=== PATIENT | male | born 1970 | race Caucasian/White ===

== ENCOUNTER 2020-12-11 18:05 | Observation (INO) | payer OTHER ==
[~2020-12-11] VITALS: Ht 172.7 cm; Wt 238.1 kg
[2020-12-11 18:16] VITALS: BP 142/70
[2020-12-11] MEDS ORDERED: LISINOPRIL-HCT1 EAC1 PO (18:19)
[2020-12-11 19:30] LABS: ABSOLUTE BASOPHILS 0.1 thou/uL (0.0-0.2); ABSOLUTE LYMPHOCYTES 2.2 thou/uL (0.8-5.3); ABSOLUTE MONOCYTES 1.3 thou/uL (0.0-1.2); ABSOLUTE NEUTROPHILS 12.9 thou/uL (1.6-8.1); BASOPHILS 0.4 %; EOSINOPHILS 0.2 %; HEMATOCRIT 40.3 % (42.0-52.0); HEMOGLOBIN 13.5 gm/dL (14.0-18.0); LYMPHOCYTES 13.4 %; MCH 29.1 pg (26.0-34.0); MCHC 33.5 g/dL (28.0-37.0); MCV 86.9 fL (80.0-100.0); MONOCYTES 7.6 %; MPV 8.7 fl. (7.2-11.1); NUCLEATED RBCS 0 /100WBC; PLATELET COUNT* 246 thou/uL (150-400); POLYS 78.4 %; RBC 4.64 mil/uL (4.50-6.00); RDW-CV 15.1 % (10.5-14.5); WBC 16.4 thou/uL (4.0-11.0)
[2020-12-11 19:41] LABS: CALCIUM 9.4 mg/dL (8.5-10.1); CREATININE 1.3 mg/dL (0.6-1.3); POTASSIUM 5.7 mmol/L (3.5-5.1)
[2020-12-11 19:46] LABS: ALBUMIN 3.9 g/dL (3.4-5.0); TOTAL BILIRUBIN 0.9 mg/dL (<0.1-1.0); TOTAL PROTEIN 8.1 g/dL (6.4-8.2)
--- NOTE | 2020-12-11 23:01 | NUR ---
MULTIPLE CALLS TO TRY TO GET THIS PATIENT TO ANOTHER HOSPITAL FOR CT SCAN [facility] COULD SCAN HIM BUT THE TRANSFERRING AMBULANCE CREW MUST WAIT WITH TH THE PATIENT TO RETURN. PER [facility] THEY ARE UNABLE TO STAY AND RETURN PATIENT [place] THIS WAS THE ONLY WAY [facility] COU[facility] THE [facility]. TRIED [facility] TRANSFER TEAM - THEY ARE CLOSED TO ALL TRANSFERS UNLESS TCD THEY DID ATTEMPT TO DO THIS PATIENT SCAN HOWEVER DUE TO SIZE - THE MEASUREMENTS SHOW HE WILL NOT BE ABLE TO BE SCANNED AT THEIR FACILITY ([facility]) WHO WAS ABLE TO FIT HIM INTO THE SCHEDULE. ATTEMPTED TO TRANSFER TO [facility], WHO AGAIN WUOLD NOT BE ABLE TO SCAN DUE TO MEASUREMENTS CALLED [facility] FOR BARIATRIC TRANSFER TO [place] AND THEY WERE UNABLE TO DO NON EMERGENT TRANSFERS AT ALL UNTIL POSSIBLY MORNING
--- NOTE | 2020-12-11 23:52 | NUR ---
PER JERRY, PATIENT STANDING CIRCUMFERENCE OF WAIST IS 63 INCHES or 160 CM LYING DOWN HE IS 36 INCHES OR 90 CM SIDE TO SIDE FOR WIDTH IN CT SCANNER
[2020-12-12] VITALS (7 sets, daily range): BP systolic 131–153; BP diastolic 68–88
[2020-12-12 04:29] LABS: URINE BILIRUBIN NEGATIVE (Negative); URINE BLOOD NEGATIVE (Negative); URINE CLARITY CLEAR; URINE COLOR YELLOW; URINE GLUCOSE-RANDOM NEGATIVE (Negative); URINE KETONES NEGATIVE (Negative); URINE LEUKOCYTES-REFLEX NEGATIVE (Negative); URINE NITRITE-REFLEX NEGATIVE (Negative); URINE PROTEIN NEGATIVE (Negative); URINE SPECIFIC GRAVITY 1.025 (1.005-1.030)
[2020-12-12 10:20] LABS: ABSOLUTE EOSINOPHILS 0.1 thou/uL (0.0-0.7); ABSOLUTE NEUTROPHILS 5.5 thou/uL (1.6-8.1); BASOPHILS 0.3 %; HEMATOCRIT 35.1 % (42.0-52.0); HEMOGLOBIN 11.8 gm/dL (14.0-18.0); MCH 29.1 pg (26.0-34.0); MCHC 33.6 g/dL (28.0-37.0); MCV 86.7 fL (80.0-100.0); MONOCYTES 11.2 %; MPV 7.6 fl. (7.2-11.1); NUCLEATED RBCS 0 /100WBC; PLATELET COUNT* 175 thou/uL (150-400); POLYS 64.5 %; RBC 4.05 mil/uL (4.50-6.00); RDW-CV 14.5 % (10.5-14.5); WBC 8.5 thou/uL (4.0-11.0)
[2020-12-12 10:34] LABS: ALBUMIN 3.1 g/dL (3.4-5.0); CALCIUM 8.4 mg/dL (8.5-10.1); CREATININE 1.3 mg/dL (0.6-1.3); POTASSIUM 4.2 mmol/L (3.5-5.1); TOTAL BILIRUBIN 0.7 mg/dL (<0.1-1.0); TOTAL PROTEIN 6.5 g/dL (6.4-8.2)
--- NOTE | 2020-12-12 10:46 | EKG ---
[place] [address] ELECTROCARDIOGRAM REPORT Name: REJIBLAKE Jermaine Room: [address] M.R.#: [id number] Admission: 12/11/20 Attend Phys: Marvin Wrad Discharge: Date of : 72 Date of Service: 12/11/201948 Report #: [id number] THIS REPORT FOR: //name// [facility] ED Test Date: 2020-12-11 Test Time: 19:49:12 Pat Name: BLAKE MENDOZA Department: Room: [facility] Gender: M Validation Analyst: KARLA : 1970 Requested By: Mai Hawley Order Number: [id number] MD: Kael Keene Measurements Intervals [place] Rate: 88 P: 57 CT: 155 QRS: -6 QRSD: 99 T: 72 QT: 360 QTc: 436 Interpretive Statements Sinus rhythm Nonspecific T abnormalities, lateral leads Baseline wander in lead(s) II,III,aVF No previous ECG available for comparison Electronically Signed On 12-12-2020 10:46:09 CDT by Kael Keene [email or web address] <ELECTRONICALLY SIGNED> By: Kael Keene MD, [facility] 12/12/20 1046 48 48 Kael Keene MD, [facility] /EPI
--- NOTE | 2020-12-12 13:29 | NUR ---
The patient arrived to 215. Denies SOB or CP pain. IV fluids infusing.
--- NOTE | 2020-12-12 14:51 | NUR ---
[facility] CONTACTED SEVERAL LOCAL HOSPITALS, FOR POSSIBLE TRANSFER, DUE TO PT.'S WEIGHT BARRIERS ALL HOSPITALS DENIED DUE TO PT. EXCEED WEIGHT LIMITS, FOR CT SCANNER. DR. SIDDIQUI SAID SHE'S OK WITH [facility] NO LONGER LOOKING FOR PLACES. CONTINUE TO CARE FOR PT'S MEDICAL NEEDS. CONTINUE TO FOLLOW FOR SAFE D/C PLANNING.
--- NOTE | 2020-12-12 18:31 | NUR ---
The patient c/o of abd pain rotating to his chest. Vitals and EKG performed.
[2020-12-13 00:55] VITALS: BP 146/64
[2020-12-13 04:00] VITALS: BP 137/87
[2020-12-13 04:26] LABS: HEMATOCRIT 34.4 % (42.0-52.0); HEMOGLOBIN 11.6 gm/dL (14.0-18.0); MCH 29.3 pg (26.0-34.0); MCHC 33.7 g/dL (28.0-37.0); MPV 8.7 fl. (7.2-11.1); RBC 3.95 mil/uL (4.50-6.00); RDW-CV 14.8 % (10.5-14.5); WBC 7.7 thou/uL (4.0-11.0)
[2020-12-13 04:41] LABS: ALBUMIN 3.3 g/dL (3.4-5.0); CALCIUM 8.6 mg/dL (8.5-10.1); CREATININE 1.2 mg/dL (0.6-1.3); MAGNESIUM 2.2 mg/dL (1.8-2.4); POTASSIUM 3.8 mmol/L (3.5-5.1); TOTAL BILIRUBIN 0.7 mg/dL (<0.1-1.0); TOTAL PROTEIN 6.8 g/dL (6.4-8.2)
--- NOTE | 2020-12-13 06:06 | NUR ---
PATIENT SLEPT MOST OF THE NIGHT. IV ANTIBIOTICS WERE GIVEN ORDERED. PATIENT HAD NO COMPLAINTS OF PAIN. WILL CONTINUE TO MONITOR.
[2020-12-13 08:30] VITALS: BP 119/77
--- NOTE | 2020-12-13 12:20 | EKG ---
[place] [address] ELECTROCARDIOGRAM REPORT Name: REJIBLAKE Jermaine Room: [address] ADM IN .R.#: [id number] Admission: 12/13/20 Attend Phys: Marvin Ward Discharge: Date of : 72 Date of Service: 12/12/20 1835 Report #: [id number] THIS REPORT FOR: //name// [facility] Test Date: 2020-12-12 Test Time: 18:35:08 Pat Name: BLAKE MENDOZA Department: Room: [address] Gender: M Grounds Maintenance Supervisor: : 1970 Requested By: Nirmala Fang Order Number: [id number] Reading MD: Prem Spaulding Measurements Intervals [place] Rate: 87 P: 62 [place]: 158 QRS: -6 QRSD: 102 T: 61 QT: 377 QTc: 454 Interpretive Statements Sinus rhythm Low voltage, precordial leads Probable anteroseptal infarct, old Compared to ECG 12/11/2020 19:49:12 Low QRS voltage now present Myocardial infarct finding now present Electronically Signed On 12-13-2020 12:20:10 CDT by Prem Spaulding [email or web address] <ELECTRONICALLY SIGNED> By: Prem Spaulding MD, [facility] 12/13/20 1220 1835 1835 Prem Spaulding MD, FAC /EPI
[2020-12-13 12:40] VITALS: BP 136/80
--- NOTE | 2020-12-13 14:03 | NUR ---
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 No DME. No hx of HH or SNF. Anticipate dc tomorrow, no needs.
[2020-12-13 20:00] VITALS: BP 132/73
[2020-12-14 03:01] VITALS: BP 134/73
--- NOTE | 2020-12-14 05:42 | NUR ---
PATIENT SLEPT MOST OF THE NIGHT. IV REMAINS SALINE LOCKED. PATIENT HAD NO COMPLAINTS OF PAIN. WILL CONTINUE TO MONITOR.
[2020-12-14 08:00] VITALS: BP 141/78
[2020-12-14 11:40] VITALS: BP 141/78
[2020-12-14] MEDS ORDERED: CIPRO500 M1 PO (12:40)
[2020-12-14] MEDS ORDERED: FLAGYL500 M1 PO (12:40)
[2020-12-14 13:02] LABS: ALBUMIN 3.4 g/dL (3.4-5.0); DIRECT BILIRUBIN 0.2 mg/dL (<0.1-0.3); TOTAL BILIRUBIN 0.6 mg/dL (<0.1-1.0); TOTAL PROTEIN 6.9 g/dL (6.4-8.2)
--- NOTE | 2020-12-14 14:12 | NUR ---
DISCHARGE INSTRUCTIONS GIVEN. NO CONCERNS VOICED. THE PATIENT WAS ENCOUARGED TO FOLLOW UP WITH HIS GI ONCE HE GETS HOME.
--- NOTE | 2020-12-14 15:25 | NUR ---
THE PATIENT WAS WHEELED TO THE DOOR. THE PATIENT WAS TRANSPORTED VIA CAB.
== END 2020-12-14 15:27 | disposition home or self-care (01) ==
LOC: M.ERS 18:05 → M.TBA-ER 23:31 → M.2W 12-12 12:49
PROVIDERS: Internal Medicine; Nurse Practitioner Family; ADMIT Internal Medicine; ATTEND Internal Medicine
DX: K80.20 Calculus of gallbladder without cholecystitis without obstruction (principal); Z20.822 Contact with and (suspected) exposure to COVID-19; D72.829 Elevated white blood cell count, unspecified; G47.33 Obstructive sleep apnea (adult) (pediatric); K52.9 Noninfective gastroenteritis and colitis, unspecified; K21.9 Gastro-esophageal reflux disease without esophagitis; E66.9 Obesity, unspecified; Z68.45 Body mass index [BMI] 70 or greater, adult; Z79.899 Other long term (current) drug therapy